=== PATIENT | male | born 1990 | race Caucasian/White ===

== ENCOUNTER 2025-09-25 23:44 | Inpatient (IN) | payer BC ==
[2025-09-26 00:42] LABS: #Basophils 0.06 10x3/uL (0.0-0.2); #Eosinophils 0.22 10x3/uL (0.0-0.7); #Monocytes 0.45 10x3/uL (0.11-0.59); #Neutrophils 5.87 10x3/uL (1.40-6.50); %Basophils 0.7 % (0.0-1.0); %Eosinophils 2.4 % (0.0-10.0); %Lymphocytes 27.1 % (21.0-51.0); %Monocytes 4.9 % (0.0-10.0); %Neutrophils 63.8 % (42.0-75.0); Hematocrit 42.6 % (42.0-52.0); Hemoglobin 14.6 g/dL (14.0-18.0); Mean Corpuscular Hemoglobin 30.7 pg (27.0-31.0); Mean Corpuscular Volume 89.5 fL (78.0-98.0); Platelet Count 196 10x3/uL (130-400); Red Blood Cell (RBC) Count 4.76 mill/uL (4.70-6.10); White Blood Cell (WBC) Count 9.19 10x3/uL (4.8-10.8)
[2025-09-26] MEDS ORDERED: Prochlorperazine 10 MG/2 ML VIAL ONE (00:42)
[2025-09-26] MEDS ORDERED: Acetaminophen 500 MG TAB ONE (00:42)
[2025-09-26 00:52] LABS: Acetaminophen Less than 10 mcg/mL (Less than 10); Salicylate Less than 8.0 mg/dL (Less than 8.0)
[2025-09-26 00:53] LABS: ALT (SGPT) 32 U/L (Less than 45); AST (SGOT) 28 U/L (11-34); Albumin 3.8 g/dL (3.1-4.5); Alkaline Phosphatase 75 U/L (40-110); Anion Gap 14 mmol/L (10-20); BUN (Urea Nitrogen) 17 mg/dL (8.9-20.6); Bilirubin, Total 0.2 mg/dL (0.3-1.2); Calc. Creatinine Clearance 0 mL/min (70-130); Calcium 9.4 mg/dL (7.8-10.44); Carbon Dioxide 23 mmol/L (22-29); Chloride 105 mmol/L (98-107); Globulin 2.8 g/dL (2.4-3.5); Glucose 108 mg/dL (70-105); Potassium 4.0 mmol/L (3.5-5.1); Sodium 138 mmol/L (136-145)
[2025-09-26] MEDS ORDERED: Ondansetron PF 4 MG/2 ML Vial IVP PRN (02:27)
[2025-09-26] MEDS ORDERED: Calcium Carbonate 500 MG ChewTAB PO PRN (02:27)
[2025-09-26] MEDS ORDERED: Senokot S 8.6-50 MG TAB PO PRN (02:27)
[2025-09-26] MEDS ORDERED: Electrolyte Replacement Protocol 1 EACH FS SCH (02:45)
[2025-09-26] MEDS ORDERED: PHOS-NAK 1 PKT PACK PO PRN (03:00)
[2025-09-26] MEDS ORDERED: Potassium Chloride 20 MEQ in Premix 1 BAG IVPB PRN (03:00)
[2025-09-26 03:02] LABS: Bacteria/HPF None Seen HPF (None Seen); CAUTI Indications for Culture Fever or rigors; Glucose, Urine (Dipstick) Normal (Negative); Leukocyte Negative Leu/uL (Negative); Protein, Urine (Dipstick) Negative (Neg-Trace); RBC/HPF None Seen HPF (0-3); Specific Gravity, Urine 1.006 (1.002-1.036); WBC/HPF None Seen HPF (0-3)
[2025-09-26 03:03] LABS: Urine Culture Reflex No No
[2025-09-26 03:08] LABS: Cocaine Metabolite Screen Negative (Negative); THC/Cannabinoid Screen PRELIM POSITIVE (Negative); Tricyclic Screen Negative (Negative)
[2025-09-26] MEDS ORDERED: levETIRAcetam 500 MG (5 mL) VIAL ONE (03:49)
[2025-09-26 06:50] VITALS: BMI 39.2
[2025-09-26 07:48] LABS: #Basophils 0.04 10x3/uL (0.0-0.2); #Eosinophils 0.21 10x3/uL (0.0-0.7); #Monocytes 0.46 10x3/uL (0.11-0.59); #Neutrophils 5.00 10x3/uL (1.40-6.50); %Basophils 0.5 % (0.0-1.0); %Eosinophils 2.5 % (0.0-10.0); %Lymphocytes 31.3 % (21.0-51.0); %Monocytes 5.5 % (0.0-10.0); %Neutrophils 59.8 % (42.0-75.0); Hematocrit 41.8 % (42.0-52.0); Hemoglobin 14.2 g/dL (14.0-18.0); Mean Corpuscular Hemoglobin 30.7 pg (27.0-31.0); Mean Corpuscular Volume 90.3 fL (78.0-98.0); Platelet Count 188 10x3/uL (130-400); Red Blood Cell (RBC) Count 4.63 mill/uL (4.70-6.10); White Blood Cell (WBC) Count 8.35 10x3/uL (4.8-10.8)
[2025-09-26 08:04] LABS: ALT (SGPT) 30 U/L (Less than 45); AST (SGOT) 26 U/L (11-34); Albumin 3.4 g/dL (3.1-4.5); Alkaline Phosphatase 69 U/L (40-110); Anion Gap 13 mmol/L (10-20); BUN (Urea Nitrogen) 14 mg/dL (8.9-20.6); Bilirubin, Total 0.3 mg/dL (0.3-1.2); Calc. Creatinine Clearance 177 mL/min (70-130); Calcium 8.8 mg/dL (7.8-10.44); Carbon Dioxide 22 mmol/L (22-29); Chloride 107 mmol/L (98-107); Globulin 2.7 g/dL (2.4-3.5); Glucose 139 mg/dL (70-105); Magnesium 2.0 mg/dL (1.6-2.6); Potassium 4.1 mmol/L (3.5-5.1); Sodium 138 mmol/L (136-145)
[2025-09-26 08:46] LABS: #Basophils 0.05 10x3/uL (0.0-0.2); #Eosinophils 0.22 10x3/uL (0.0-0.7); #Monocytes 0.51 10x3/uL (0.11-0.59); #Neutrophils 4.86 10x3/uL (1.40-6.50); %Basophils 0.6 % (0.0-1.0); %Eosinophils 2.8 % (0.0-10.0); %Lymphocytes 28.5 % (21.0-51.0); %Monocytes 6.4 % (0.0-10.0); %Neutrophils 61.1 % (42.0-75.0); Hematocrit 43.4 % (42.0-52.0); Hemoglobin 15.0 g/dL (14.0-18.0); Mean Corpuscular Hemoglobin 30.5 pg (27.0-31.0); Mean Corpuscular Volume 88.2 fL (78.0-98.0); Platelet Count 176 10x3/uL (130-400); Red Blood Cell (RBC) Count 4.92 mill/uL (4.70-6.10); White Blood Cell (WBC) Count 7.96 10x3/uL (4.8-10.8)
[2025-09-26] MEDS ORDERED: Folic Acid 1 MG TAB ONE (09:14)
[2025-09-26] MEDS ORDERED: Multivit, Therapeutic 1 TAB ONE (09:14)
[2025-09-26] MEDS ORDERED: Enoxaparin 40 MG (0.4 mL) SYRINGE ONE (09:14)
[2025-09-26] MEDS ORDERED: Magnesium 2 GM/50 ML BAG (IN WATER) ONE (09:21)
[2025-09-26] MEDS: Multivit, Therapeutic 1 TAB PO SCH (09:34)
[2025-09-26] MEDS: Folic Acid 1 MG TAB PO SCH (09:34)
[2025-09-26] MEDS: Enoxaparin 40 MG (0.4 mL) SYRINGE SC SCH (09:34)
[2025-09-26] MEDS: Magnesium 2 GM/50 ML(in water) 2 GM in Premix 1 BAG IVPB PRN (09:34)
[2025-09-26] MEDS: Acetaminophen 325 MG TAB PO PRN (18:44)
[2025-09-26] MEDS: levETIRAcetam 500 MG TAB PO SCH (20:20)
[2025-09-26] MEDS: Fioricet 325/50/40 mg Tablet PO PRN (20:28)
[2025-09-27 04:26] LABS: #Basophils 0.07 10x3/uL (0.0-0.2); #Eosinophils 0.26 10x3/uL (0.0-0.7); #Monocytes 0.63 10x3/uL (0.11-0.59); #Neutrophils 3.99 10x3/uL (1.40-6.50); %Basophils 0.9 % (0.0-1.0); %Eosinophils 3.3 % (0.0-10.0); %Lymphocytes 36.5 % (21.0-51.0); %Monocytes 8.0 % (0.0-10.0); %Neutrophils 50.9 % (42.0-75.0); Hematocrit 45.4 % (42.0-52.0); Hemoglobin 15.0 g/dL (14.0-18.0); Mean Corpuscular Hemoglobin 30.3 pg (27.0-31.0); Mean Corpuscular Volume 91.7 fL (78.0-98.0); Platelet Count 205 10x3/uL (130-400); Red Blood Cell (RBC) Count 4.95 mill/uL (4.70-6.10); White Blood Cell (WBC) Count 7.84 10x3/uL (4.8-10.8)
[2025-09-27 04:35] LABS: Anion Gap 12 mmol/L (10-20); BUN (Urea Nitrogen) 14 mg/dL (8.9-20.6); Calc. Creatinine Clearance 163 mL/min (70-130); Calcium 9.6 mg/dL (7.8-10.44); Carbon Dioxide 27 mmol/L (22-29); Chloride 104 mmol/L (98-107); Glucose 92 mg/dL (70-105); Magnesium 2.3 mg/dL (1.6-2.6); Potassium 4.3 mmol/L (3.5-5.1); Sodium 139 mmol/L (136-145)
[2025-09-27 11:51] VITALS: BP 134/82; TEMP 97.7
[2025-09-29] MEDS ORDERED: Thiamine 100 MG TAB PO SCH (21:00)
== END 2025-09-27 12:53 | disposition home or self-care (01) | DRG 897 ==
LOC: ERS 23:44 → ERHOLD 09-26 02:27 → PCU 09-26 15:37
PROVIDERS: ADMIT Internal Medicine; ATTEND Internal Medicine
PROC: XX20X89 Monitoring of Brain Electrical Activity, Computer-aided Detection and Notification, New Technology Group 9 (ICD-10-PCS; principal; 2025-09-26)
DX: F10.139 Alcohol abuse with withdrawal, unspecified (principal); E66.9 Obesity, unspecified; I10 Essential (primary) hypertension; F12.10 Cannabis abuse, uncomplicated; R56.9 Unspecified convulsions; F19.90 Other psychoactive substance use, unspecified, uncomplicated; F39 Unspecified mood [affective] disorder; F19.939 Other psychoactive substance use, unspecified with withdrawal, unspecified; F10.10 Alcohol abuse, uncomplicated; F13.10 Sedative, hypnotic or anxiolytic abuse, uncomplicated; Z68.39 Body mass index [BMI] 39.0-39.9, adult; Z79.899 Other long term (current) drug therapy
CPT/HCPCS: 36415; 70450; 70553; 76376; 80048; 80053; 80306; 80307; 81001; 82248; 83735; 84100; 85025; 93005; 95816; 96365; 96366; 96368; J0780; J1650; J1953; J2060; J3411; J3475; J7120